=== PATIENT | female | born 1965 | race Caucasian/White ===

== ENCOUNTER 2016-11-15 05:01 | Day surgery (SDC) | payer OTHER, MEDICARE ==
--- NOTE | ~2016-11-15 | OP ---
Record Of Operation [facility] [address] [place]. [address] NAME: OSCAR MILLER : 65 STATUS : [facility]#: [id number] AGE: 51 ADM/REG DATE : 11/15/16 MR#: [id number] REPORT SERV DATE: 11/22/16 DICTATED BY: REJI DISLA II DATE: 11/22/16 REPORT STATUS : Draft TRANSCRIBED BY: MODL DATE: 11/22/16 DATE OF PROCEDURE: 11/15/2016 PREOPERATIVE DIAGNOSIS: L4-5 stenosis. POSTOPERATIVE DIAGNOSIS: L4-5 stenosis. PROCEDURE: L4-5 epidural steroid injection. SURGEON: Reji Disla M.D. CONSCIOUS SEDATION AND DETAILS OF THE PROCEDURE: The patient was brought to the procedure room and conscious sedation performed. She was placed in prone position. The back was prepped and draped in a sterile fashion. The loss of resistance technique was used at L4-5. The fluoroscopy was also used. Contrast was then used followed by placement of Depo-Medrol into the epidural space. The patient tolerated the procedure well and then the procedure was terminated. PIPO/SOO Reji Disla II, M.D. / [id number] CC: Romeo Manzo II
[~2016-11-15 05:01] MED LIST: CYMBALTA60 PO; KLONO5 PO; LEVOTHYROXIN88 MCG PO; NORCO1 TA1 PO; PREV30 PO
== END 2016-11-15 08:36 | disposition home or self-care (01) ==
LOC: SDC 05:01
PROVIDERS: Orthopaedic Surgery
PROC: 3E0S3BZ Introduction of Anesthetic Agent into Epidural Space, Percutaneous Approach (ICD-10-PCS; 2016-11-15)
PROC: 3E0S33Z Introduction of Anti-inflammatory into Epidural Space, Percutaneous Approach (ICD-10-PCS; principal; 2016-11-15 08:00)
DX: M54.16 Radiculopathy, lumbar region (principal); M79.7 Fibromyalgia; M19.90 Unspecified osteoarthritis, unspecified site; K21.9 Gastro-esophageal reflux disease without esophagitis; F41.9 Anxiety disorder, unspecified; F32.9 Major depressive disorder, single episode, unspecified; E03.9 Hypothyroidism, unspecified; G43.909 Migraine, unspecified, not intractable, without status migrainosus; G47.30 Sleep apnea, unspecified; Z79.891 Long term (current) use of opiate analgesic; Z79.899 Other long term (current) drug therapy; Z90.49 Acquired absence of other specified parts of digestive tract; Z90.710 Acquired absence of both cervix and uterus; Z98.890 Other specified postprocedural states; Z99.89 Dependence on other enabling machines and devices
CPT/HCPCS: J1040; J2250; J3010; Q9967